=== PATIENT | male | born 1995 | race Caucasian/White ===

== ENCOUNTER 2018-07-07 23:18 | Emergency (ER) | payer MEDICAID ==
[~2018-07-07] VITALS: Ht 188 cm; Wt 115.0 kg
--- NOTE | 2018-07-08 02:13 | NUR ---
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 HE SAID HE HAD THE ATHLETE'S FEET X 2 MO BUT IT WAS ONLY TONIGHT THAT IT STARTED TO REALLY HURT THERE IN THAT AREA.
--- NOTE | 2018-07-08 03:19 | NUR ---
PT ASLEEP AWAITING
--- NOTE | 2018-07-08 05:35 | NUR ---
no changes, sleeping
[2018-07-08 06:48] VITALS: BP 150/90
== END 2018-07-08 06:50 | disposition home or self-care (01) ==
LOC: ER 23:19
DX: S90.822A Blister (nonthermal), left foot, initial encounter (principal); Z88.1 Allergy status to other antibiotic agents; X58.XXXA Exposure to other specified factors, initial encounter; Y93.89 Activity, other specified; Y92.89 Other specified places as the place of occurrence of the external cause; Y99.8 Other external cause status
CPT/HCPCS: 99281